=== PATIENT | female | born 1995 | race Caucasian/White ===

== ENCOUNTER 2019-01-04 09:50 | Inpatient (IN) | payer OTHER ==
[2019-01-04] VITALS (35 sets, daily range): BP systolic 101–140; BP diastolic 56–88
[~2019-01-04] VITALS: Ht 162.6 cm; Wt 73.5 kg
--- NOTE | 2019-01-04 09:50 | NUR ---
DREW ESPITIA presented to unit via AMBULATION, accompanied by S.O. AND MOM, FOR INDUCTION OF LABOR. DREW ESPITIA weighed, gowned, voided, and to bed. EFHM and TOCO applied, VS taken. DREW ESPITIA oriented to bed controls, call light, TV, heat, and A/C controls.
--- NOTE | 2019-01-04 10:10 | NUR ---
DR BERNAL CALLED AND ADMISSION ORDERS REC'D.
[2019-01-04] MEDS ORDERED: D5 LR IV SOLUTION 1,000 ML IV SCH (10:19)
[2019-01-04] MEDS ORDERED: OXYTOCIN/NORMAL SALINE 500 ML IV SCH ×2 (10:19→16:13)
[2019-01-04] MEDS ORDERED: MINERAL OIL CONCENTRATE 99.9% 15 ML UDC TOP PRN (10:30)
[2019-01-04 11:04] LABS: BASOPHILS % (AUTO) 0 % (0-10); EOSINOPHILS # (AUTO) 0.1 10^3/uL (0.0-0.3); EOSINOPHILS % (AUTO) 1 % (0-10); HEMATOCRIT 33 % (35-52); HEMOGLOBIN 11.2 G/DL (11.5-16.0); LYMPHOCYTES # (AUTO) 1.9 X 10^3 (1.0-4.0); LYMPHOCYTES % (AUTO) 21 % (12-44); MEAN CORPUSCULAR HEMOGLOBIN 30 PG (25-34); MEAN CORPUSCULAR HGB CONC 34 G/DL (32-36); MEAN CORPUSCULAR VOLUME 89 FL (80-99); MEAN PLATELET VOLUME 9.9 FL (7.4-10.4); MONOCYTES # (AUTO) 0.9 X 10^3 (0.0-1.0); MONOCYTES % (AUTO) 10 % (0-12); NEUTROPHILS # (AUTO) 5.9 X 10^3 (1.8-7.8); NEUTROPHILS % (AUTO) 68 % (42-75); PLATELET COUNT 250 10^3/uL (130-400); RED CELL DISTRIBUTION WIDTH 13.4 % (10.0-14.5); WHITE BLOOD COUNT 8.8 10^3/uL (4.3-11.0)
[2019-01-04] MEDS ORDERED: SUFENTA 0.6MCG/ML BUPIVA 0.125 100 ML ONE (12:24)
[2019-01-04] MEDS ORDERED: BUPIVACAINE 0.25% 30 ML (SENSORCAINE) VIAL ONE (12:43)
[2019-01-04] MEDS ORDERED: fentaNYL INJECTION 100 MCG/2 ML AMP ONE (12:43)
--- NOTE | 2019-01-04 12:45 | NUR ---
Dr. Palencia here for epidural placement. Procedure explained, consent reviewed and signed by anesthesia. Questions answered to patient's satisfaction. Time out taken to verify correct patient/procedure. Patient up to side of bed, assisted into sitting position. Betadine prep done x3 and sterile drape applied. Local done, see anesthesia record. Test dose given, see anesthesia record for drug and dosage. Epidural catheter secured in place. Epidural placement complete. Assisted back into bed, monitors adjusted. Epidural dosed, see anesthesia record. Epidural of Sufenta/Bupvicaine @12cc/hr stated per pump. Patient tolerated procedure well.
[2019-01-04] MEDS ORDERED: ONDANSETRON 4 MG/2 ML (SDV) Z0FRAN IV PRN (13:15)
[2019-01-04] MEDS ORDERED: LACTATED RINGERS 1,000 ML IV ONE (13:15)
[2019-01-04] MEDS ORDERED: CATHETER FLUSH 10 ML SYR IV PRN (13:15)
[2019-01-04] MEDS ORDERED: EPIDURAL (SUFENTA 0.6MCG/ML BUPIVA 0.125%) 100 ML BAG EPI SCH (13:15)
[2019-01-04] MEDS ORDERED: NALOXONE 0.4 MG/ML 1 ML (NARCAN) VIAL IV PRN (13:15)
[2019-01-04] MEDS ORDERED: diphenhydrAMINE 50 MG/ML INJ (BENADRYL) IV PRN (13:15)
--- NOTE | 2019-01-04 13:19 | NUR ---
DR BERNAL CALLED AND NOTIFIED OF SVE. EN ROUTE TO HOSPITAL FOR DELIVERY
[2019-01-04] MEDS ORDERED: FLU QUADRIvalent (5+ YOA) 2018-2019 (AFLURIA) 0.5 ML IM ONE (13:45)
[2019-01-04] MEDS ORDERED: CATHETER FLUSH 10 ML SYR IV SCH ×2 (14:00→22:00)
--- NOTE | 2019-01-04 14:49 | History & Physical-OB ---
OB - Chief Complaint & HPI Date/Time Date of Admission: Date of Admission: Jan 04, 2019 at 09:50 Date seen by a Provider: Jan 04, 2019 Time Seen by a Provider: 14:00 Chief Complaint/History OB-Reason for Admission/Chief: Induction of Labor Hx : 3 Hx Para: 2 Expected Date of Delivery: Jan 13, 2019 Gestational Age in Weeks: 38 Gestational Age in Days: 5 Indication for induction: history of rapid labor Admission Nurse Assessment Rev: Yes Allergies and Home Medications Allergies Coded Allergies: NSAIDS (Non-Steroidal Anti-Inflamma (Verified Allergy, Severe, ANAPHYLAXIS , 01/04/19) aspirin (Verified Allergy, Severe, ANAPHYLAXIS, 01/04/19) Patient Home Medication List Home Medication List Reviewed: Yes OB - History Hx of Present Care: Yes Ultrasounds: Normal mid trimester US Obstetrical Complications: None Medical Complications: None Delivery History Adverse Rxn to Tranfusion: No (n/a) Patient Past Medical History normal Social History/Family History HIV/AIDS: No Sexually Transmitted Disease: No Alcohol Use: Denies Use Recreational Drug Use: No Immunizations Hepatitis A: Yes Hepatitis B: Yes OB - Admission Exam Physical Exam Vitals: Vital Signs 01/04/19 13:00 Temp 98.9 Pulse 89 Resp 18 B/P (MAP) 117/74 (88) O2 Delivery Room Air HEENT: NCAT Heart: Rhythm Normal Lungs: Clear Abdomen: Gravid Extremities: Normal Reflexes: Normal Cervical Dilatation: 10cm Effacement: 100% Station: 0 Membranes: Ruptured Amniotic Fluid: Clear Heart Rate: 140's Accelerations: Accelerations Present Decelerations: No Decelerations Short Term Variability: Present Intermediate Variability: Average (6-25) Contractions on Admission: None Intensity: Mild Labs Laboratory Tests Test 01/04/19 10:50 Range/Units White Blood Count 8.8 4.3-11.0 10^3/uL Red Blood Count 3.71 L 4.35-5.85 10^6/uL Hemoglobin 11.2 L 11.5-16.0 G/DL Hematocrit 33 L 35-52 % Mean Corpuscular Volume 89 80-99 FL Mean Corpuscular Hemoglobin 30 25-34 PG Mean Corpuscular Hemoglobin Concent 34 32-36 G/DL Red Cell Distribution Width 13.4 10.0-14.5 % Platelet Count 250 130-400 10^3/uL Mean Platelet Volume 9.9 7.4-10.4 FL Neutrophils (%) (Auto) 68 42-75 % Lymphocytes (%) (Auto) 21 12-44 % Monocytes (%) (Auto) 10 0-12 % Eosinophils (%) (Auto) 1 0-10 % Basophils (%) (Auto) 0 0-10 % Neutrophils # (Auto) 5.9 1.8-7.8 X 10^3 Lymphocytes # (Auto) 1.9 1.0-4.0 X 10^3 Monocytes # (Auto) 0.9 0.0-1.0 X 10^3 Eosinophils # (Auto) 0.1 0.0-0.3 10^3/uL Basophils # (Auto) 0.0 0.0-0.1 10^3/uL OB - Assessment/Plan/Diagnosis Assessment Assessment: induction of labor Admission Dx induction of labor Admission Status: Inpatient Order (span 2 midnights) Reason for Inpatient Admission: Induction of labor Plan Plan: Induction Induction Method: per Pitocin Protocol Copy Copies To 1: TRINIDAD BERNAL MD, KATRINA M MD Jan 04, 2019 14:48
--- NOTE | 2019-01-04 14:51 | OB Labor & Delivery Record ---
Vag Delivery Note Vag Delivery Note Date of Delivery: 01/04/19 Preoperative Diagnosis: Lit Ramires is a (23 /Para 3 / 2,Gestational Age (wks)38with [5 days] Postoperative Diagnosis: Same Surgeon: TRINIDAD BERNAL Tool Supervisor: [none] Anesthesia: [epidural] Delivery Type: [] Findings: [] Viable [female] , apgars [], weight [7 pounds 9 ounces] Lacerations: 1st degree perineal Intact placenta with 3 vessel cord. No nuchal cord, body cord or shoulder dystocia Estimated Blood Loss: [200] ml Complications: None Condition: Stable Description of Procedure: The patient is a 23 year old female who presented [for induction of labor for dilation of 4.5 cm and history of fast labor]. She was admitted and informed consent was obtained. Her labor course was remarkable for [nothing] She progressed to complete dilatation and began to push. She was then set up for delivery. The infant's head was delivered atraumatically in the [OA] position. The shoulders and remainder of the infant' s body were then delivered without difficulty. The cord was doubly clamped and cut and the was placed on maternal abdomen after 60 seconds. An intact placenta with 3-vessel cord delivered via Reanna and there was found to be minimal bleeding.~ Vigorous fundal massage was performed and the fundus was found to be firm. IV oxytocin was given. Examination of the vagina and perineum revealed a [1st degree perineal] laceration repaired in the usual fashion with 3 -0 vicryl suture. Following the repair, sponge, instrument and needle counts were correct. Mom and baby were both in stable condition in the labor suite. Vitals - Labs Vital Signs - I&O Vital Signs Date Time Temp Pulse Resp B/P (MAP) Pulse Ox O2 Delivery O2 Flow Rate FiO2 01/04/19 13:00 98.9 89 18 117/74 (88) Room Air 01/04/19 12:55 96 18 121/78 (92) Room Air 01/04/19 12:45 93 18 117/74 (88) Room Air 01/04/19 12:30 83 18 115/70 (85) Room Air 01/04/19 12:15 83 18 113/69 (84) Room Air 01/04/19 11:55 77 18 108/69 (82) Room Air 01/04/19 11:45 97.9 87 18 110/74 (86) Room Air 01/04/19 10:05 87 18 117/81 (93) Room Air Labs Laboratory Tests 01/04/19 10:50: White Blood Count 8.8, Red Blood Count 3.71L, Hemoglobin 11.2L, Hematocrit 33L, Mean Corpuscular Volume 89, Mean Corpuscular Hemoglobin 30, Mean Corpuscular Hemoglobin Concent 34, Red Cell Distribution Width 13.4, Platelet Count 250, Mean Platelet Volume 9.9, Neutrophils (%) (Auto) 68, Lymphocytes (%) (Auto) 21, Monocytes (%) (Auto) 10, Eosinophils (%) (Auto) 1, Basophils (%) (Auto) 0, Neutrophils # (Auto) 5.9, Lymphocytes # (Auto) 1.9, Monocytes # (Auto) 0.9, Eosinophils # (Auto) 0.1, Basophils # (Auto) 0.0 TRINIDAD BERNAL MD Jan 04, 2019 14:51
[2019-01-04] MEDS ORDERED: BENZOCAINE/MENTHOL (DERMOPLAST) 56 ML CAN TP PRN (16:15)
[2019-01-04] MEDS ORDERED: WITCH HAZEL(TUCKS) 40 EA JAR TOP PRN (16:15)
[2019-01-04] MEDS: ACETAMINOPHEN 500 MG TAB (TYLENOL) PO PRN (19:11)
[2019-01-04] MEDS: DOCUSATE SODIUM 100 MG (COLACE) CAP PO SCH (21:57)
[2019-01-05] MEDS: ACETAMINOPHEN 500 MG TAB (TYLENOL) PO PRN ×3 (03:15→20:35)
[2019-01-05 05:56] LABS: BASOPHILS % (AUTO) 0 % (0-10); EOSINOPHILS # (AUTO) 0.2 10^3/uL (0.0-0.3); EOSINOPHILS % (AUTO) 1 % (0-10); HEMATOCRIT 32 % (35-52); HEMOGLOBIN 10.4 G/DL (11.5-16.0); LYMPHOCYTES # (AUTO) 2.4 X 10^3 (1.0-4.0); LYMPHOCYTES % (AUTO) 22 % (12-44); MEAN CORPUSCULAR HEMOGLOBIN 30 PG (25-34); MEAN CORPUSCULAR HGB CONC 33 G/DL (32-36); MEAN CORPUSCULAR VOLUME 90 FL (80-99); MEAN PLATELET VOLUME 9.9 FL (7.4-10.4); MONOCYTES % (AUTO) 9 % (0-12); NEUTROPHILS # (AUTO) 7.7 X 10^3 (1.8-7.8); NEUTROPHILS % (AUTO) 68 % (42-75); PLATELET COUNT 213 10^3/uL (130-400); RED CELL DISTRIBUTION WIDTH 13.1 % (10.0-14.5); WHITE BLOOD COUNT 11.2 10^3/uL (4.3-11.0)
[2019-01-05 06:44] VITALS: BP 107/71
--- NOTE | 2019-01-05 07:35 | NUR ---
Report given to Donell RANDOLPH
[2019-01-05 08:00] VITALS: BP 104/64
--- NOTE | 2019-01-05 08:00 | NUR ---
A.M. ASSESSMENT COMPLETED. VSS.
[2019-01-05] MEDS: DOCUSATE SODIUM 100 MG (COLACE) CAP PO SCH ×2 (09:22→20:35)
--- NOTE | 2019-01-05 10:00 | NUR ---
IN TO SEE PT. CONTINUES TO DO WELL.
[2019-01-05 12:30] VITALS: BP 112/57
--- NOTE | 2019-01-05 12:30 | NUR ---
TYLENOL 1000 MG P.O. FOR C/O SORE BOTTOM. VSS. CARING FOR INFANT IN ROOM. WELL.
--- NOTE | 2019-01-05 12:40 | Anesthesia-Regional Post-Op ---
Regional Patient Condition Mental Status: Alert, Oriented x3 Circulation: Same as Pre-Op Headache: Absent Sensation: Full Recovery Motor Block: Absent Post Op Complications Complications None Follow Up Care/Instructions Patient Instructions None needed. Anesthesia/Patient Condition Patient is doing well, no complaints, stable vital signs, no apparent adverse anesthesia problems. DEAN MATIAS DO Jan 05, 2019 12:40
--- NOTE | 2019-01-05 14:30 | NUR ---
CARING FOR IN ROOM. INFANT WELL.
--- NOTE | 2019-01-05 15:43 | Postpartum Progress Note ---
Note Note Day # 1 Subjective: Patient is without complaints. Ambulating, voiding. Tolerating a regular diet without nausea or vomiting. Normal lochia. Pain is well controlled with oral pain medications. Breast feeding infant well. Objective: Physical Exam: General - Alert and oriented, no apparent distress Abdomen - Soft, appropriately tender to palpation, non-distended, fundus firm at umbilicus Extremities - no edema, negative Jhonatan's bilaterally CV - RRR Assessment: 23 yo G3 Now P2 post- day # 1, status post uncomplicated vaginal delivery. Recovering well, hemodynamically stable Plan: Routine care. Encourage breast feeding. Encourage ambulation. Continue PNV Plan for discharge tomorrow with 6 week post visit with Dr Home Dexters - Labs Vital Signs - I&O Vital Signs Date Time Temp Pulse Resp B/P (MAP) Pulse Ox O2 Delivery O2 Flow Rate FiO2 01/05/19 12:30 98.9 81 18 112/57 (75) 97 Room Air 01/05/19 08:00 98.3 79 18 104/64 (77) 98 Room Air 01/05/19 06:44 97.5 83 20 107/71 (83) 98 01/04/19 20:30 97.8 81 18 104/59 (74) 95 01/04/19 16:46 92 18 110/62 (78) Room Air 01/04/19 16:31 86 18 103/60 (74) Room Air 01/04/19 16:16 77 18 106/58 (74) Room Air 01/04/19 16:01 74 18 103/59 (74) Room Air 01/04/19 15:46 80 18 101/58 (72) Room Air I & O 01/05/19 07:00 Intake Total 3200 ml Balance 3200 ml Labs Laboratory Tests 01/05/19 05:40: White Blood Count 11.2H, Red Blood Count 3.53L, Hemoglobin 10.4L, Hematocrit 32L , Mean Corpuscular Volume 90, Mean Corpuscular Hemoglobin 30, Mean Corpuscular Hemoglobin Concent 33, Red Cell Distribution Width 13.1, Platelet Count 213, Mean Platelet Volume 9.9, Neutrophils (%) (Auto) 68, Lymphocytes (%) (Auto) 22, Monocytes (%) (Auto) 9, Eosinophils (%) (Auto) 1, Basophils (%) (Auto) 0, Neutrophils # (Auto) 7.7, Lymphocytes # (Auto) 2.4, Monocytes # (Auto) 1.0, Eosinophils # (Auto) 0.2, Basophils # (Auto) 0.0 BINTA CERNA MD Jan 05, 2019 15:43
[2019-01-05 16:15] VITALS: BP 111/67
--- NOTE | 2019-01-05 16:15 | NUR ---
VSS. PLAN TO STAY UNTIL TOMORROW.
--- NOTE | 2019-01-05 18:30 | NUR ---
PT HAD STORK MEAL. CONTINUES TO CARE FOR IN ROOM. GOOD INTERACTION NOTED.
--- NOTE | 2019-01-05 20:40 | NUR ---
Pt. states that she is having no pain at this time and does not want to take her Tylenol right now. Nurse informed pt to just put her call light on when she is ready for it.
[2019-01-05 20:46] VITALS: BP 111/54
--- NOTE | 2019-01-06 00:36 | NUR ---
Nurse in to check on pt. Parent's sleeping in bed and asleep in open air crib.
[2019-01-06 03:00] VITALS: BP 99/63
[2019-01-06] MEDS: DOCUSATE SODIUM 100 MG (COLACE) CAP PO SCH (07:29)
[2019-01-06 07:50] VITALS: BP 110/68
[2019-01-06] MEDS ORDERED: ACET-77 PO (11:20)
--- NOTE | 2019-01-06 11:20 | Discharge Summary ---
Diagnosis/Chief Complaint Date of Admission Jan 04, 2019 at 09:50 Date of Discharge 01/06/19 Admission Diagnosis Admission Diagnosis Term 39 week gestation IOL Discharge Diagnosis Term Delivery of Female Discharge Summary-Simple/Stand Procedures Epidural Placement Discharge Physical Examination Allergies: Coded Allergies: NSAIDS (Non-Steroidal Anti-Inflamma (Verified Allergy, Severe, ANAPHYLAXIS , 01/04/19) aspirin (Verified Allergy, Severe, ANAPHYLAXIS, 01/04/19) Vitals & I&Os Vital Sign - Last 12Hours Date Time Temp Pulse Resp B/P (MAP) Pulse Ox O2 Delivery O2 Flow Rate FiO2 01/06/19 07:50 97.9 84 22 110/68 (82) 97 Room Air General Appearance: Alert, Oriented X3, Cooperative, No Acute Distress HEENT: Mucous Memb Moist/[place] Respiratory: Clear to Auscultation, Normal Air Movement Cardiovascular: Regular Rate, No Murmurs Abdominal: Normal Bowel Sounds, Soft, No Tenderness, Other (fundus firm and below umbicus) Extremities: No Edema, No Tenderness/Swelling Skin: No Rashes Neuro: Strength at 5/5 X4 Ext, Cranial Nerves 3-12 NL Psych/Mental Status: Mental Status NL, Mood NL Hospital Course Was the Problem List Reviewed?: Yes See final discharge diagnosis. Discussion & Recommendations 23 yo G3 now P2 delivered term female infant via Uncomplicated Discharge Condition at discharge stable Instructions to patient/family Please see electronic discharge instructions given to patient. Discharge Medications Reviewed and agree with Discharge Medication list on patient's Discharge Instruction sheet Clinical Quality Measures DVT/VTE Risk/Contraindication: Risk Factor Score Per Nursin RFS Level Per Nursing on Admit: 1=Low/No VTE PPX Copy Copies To 1: TRINIDAD BERNAL MD, HOLLY R MD Jan 06, 2019 11:20
--- NOTE | 2019-01-06 11:23 | Discharge Instructions ---
Discharge Inst-[facility] Depart Medications New, Converted or Re-Newed RX: Other New Medications: Acetaminophen (Acetaminophen) 500 Mg Tablet 1000 MG PO Q8H PRN for PAIN-MILD, #90 TAB Follow Up/Instructions Goal/Follow Up: - You will have a follow up appt with Dr Bernal in 6 weeks Activity Activity: Activity as Tolerated Driving Instructions: You May Drive NO SMOKING: NO SMOKING Nothing Inside Vagina: No Douching, No [place], No Tampons Diet Discharge Diet: No Restrictions Symptoms to Report to : Bleeding Excessive, Fever Over 101 Degrees F, Shortness of Breath For Any Problems or Questions: Contact Your Physician Copies To 1: TRINIDAD BERNAL MD, HOLLY R MD Jan 06, 2019 11:23
[2019-01-06 12:00] VITALS: BP 109/69
--- NOTE | 2019-01-06 13:30 | NUR ---
Explained discharge and home care instructions with pt and pt's . They verbalized understanding and verified by signing signature page.
--- NOTE | 2019-01-06 14:20 | NUR ---
Pt discharged. Ambulatory to personal vehicle and accompanied via student nurse. Babe in child safety seat and clicked in car. No s/s of distress noted at this time. All personal items remain with pt.
== END 2019-01-06 14:20 | disposition home or self-care (01) | DRG 807 ==
LOC: LDRP 09:50
PROVIDERS: ADMIT Family Medicine; ATTEND Family Medicine
PROC: 10E0XZZ Delivery of Products of Conception, External Approach (ICD-10-PCS; principal; 2019-01-04)
PROC: 0HQ9XZZ Repair Perineum Skin, External Approach (ICD-10-PCS; 2019-01-04)
PROC: 3E033VJ Introduction of Other Hormone into Peripheral Vein, Percutaneous Approach (ICD-10-PCS; 2019-01-04)
DX: O70.0 First degree perineal laceration during delivery (principal); Z3A.38 38 weeks gestation of pregnancy; Z37.0 Single live birth
CPT/HCPCS: 36415; 85025; 86850; 86900; 86901

== ENCOUNTER → 2021-01-15 | Outpatient (CLI) | payer BC, OTHER ==
[~2021-01-15] MED LIST: ACET-78 PO; CATHETER FLUSH 10 ML SYR IV PRN; HOLD METFORMIN - RECEIVED CONTRAST 20 ML VIAL IV SCH; IOHEXOL 350 MG/ML 100 ML (OMNIPAQUE 350) VIAL IV ONE; NS 100 ML (IVPB) BAG IV ONE
--- NOTE | 2021-01-15 09:47 | Diagnostic Imaging Report ---
EXAMINATION: CT Chest with intravenous contrast. TECHNIQUE: Multiple contiguous axial images were obtained through the chest after the uneventful administration of intravenous contrast. All CT scans use one or more of the following dose optimizing techniques: automated exposure control, MA and/or KvP adjustment based on a patient size and exam type, or iterative reconstruction. HISTORY: Shortness of breath COMPARISON: None available. FINDINGS: There is no edema or pneumonia. No pleural effusion. No pneumothorax. No suspicious nodules. There is no axillary or supraclavicular lymphadenopathy. There is no mediastinal lymphadenopathy. Heart size is normal. There are no coronary artery calcifications. No pericardial effusion. Aorta is normal in caliber. There is normal-appearing thymus in the anterior mediastinum. Limited views of the upper abdomen show a few tiny liver cysts. There are no suspicious osseus lesions. IMPRESSION: 1. No acute abnormality in the chest. Dictated by: Dictated on workstation # [id number]
== END ==
LOC: RAD FS 08:56
PROVIDERS: ATTEND Family Medicine
DX: R06.09 Other forms of dyspnea (principal)
CPT/HCPCS: 71260

== ENCOUNTER → 2021-05-17 | Outpatient (CLI) | payer BC ==
[~2021-05-17] MED LIST changes: -CATHETER FLUSH 10 ML SYR IV PRN; -HOLD METFORMIN - RECEIVED CONTRAST 20 ML VIAL IV SCH; -IOHEXOL 350 MG/ML 100 ML (OMNIPAQUE 350) VIAL IV ONE; -NS 100 ML (IVPB) BAG IV ONE
--- NOTE | 2021-05-17 10:38 | Diagnostic Imaging Report ---
INDICATION: PROCEDURE: Ultrasound abdomen complete. TECHNIQUE: Multiple real-time grayscale images were obtained of the abdomen in various projections. FINDINGS: Grayscale imaging of the gallbladder reveals no intraluminal filling defect. There is no gallbladder wall thickening or pericholecystic fluid. No intra or extrahepatic biliary ductal dilatation is identified. No pancreatic, right renal, abdominal aortic or inferior vena caval abnormality is documented. No ascites was noted. Left kidney and spleen are unremarkable. IMPRESSION: Unremarkable abdominal ultrasound. Dictated by: Dictated on workstation # [id number]
== END ==
LOC: RAD FS 08:47
PROVIDERS: ATTEND Internal Medicine Gastroenterology
DX: M54.9 Dorsalgia, unspecified (principal); R07.9 Chest pain, unspecified; R06.02 Shortness of breath
CPT/HCPCS: 76700